=== PATIENT | female | born 1995 | race Two or more races ===

== ENCOUNTER 2021-04-29 13:31 | Emergency (ER) | payer OTHER ==
[~2021-04-29] VITALS: Ht 172.7 cm; Wt 62.4 kg
--- NOTE | 2021-04-29 13:52 | PHYS DOC ---
Past History Past Medical History: No Pertinent History Past Surgical History: No Surgical History Smoking: Non-smoker Alcohol Use: Rarely (Admits rare consumption, glass out wine at dinner yesterday evening) Drug Use: Marijuana (Admits to taking x1 edible yesterday) Adult General HPI HPI Patient is a 26-year-old female presenting for generalized abdominal pain. Onset was this morning without any known inciting event or trauma. Reports she had sex yesterday, reported it was unremarkable and protected, no trauma or any concerns. Reports she woke up this morning with generalized abdominal fullness and slight dysuria without vaginal bleeding or discharge. States she has had generalized cramping and feeling of incomplete bladder emptying all through the morning. Reports her pain started migrating to generalized abdominal area with radiation to right shoulder which concerned her prompting her to come in. She has not taken anything in attempt to alleviate her symptoms. Laying on her side makes better, certain body movements and breathing and makes worse. Last menstrual period was 3 weeks ago and normal in consistency and length. No prior history of intra-abdominal abnormalities, no surgeries or trauma Review of Systems Review of Systems Fourteen body systems of review of systems have been reviewed. See HPI for pertinent positives and negative responses, other bhandari all other systems are negative, non-pertinent or non-contributory Current Medications Current Medications Current Medications Medications (Trade) Dose Ordered Sig/Indira Start Time Stop Time Status Last Admin Dose Admin Fentanyl Citrate (Fentanyl 2ml Vial) 50 mcg 1X ONCE 04/29/21 16:00 04/29/21 16:01 Info (Do NOT chart on this entry -- for MONITORING) 1 each PRN DAILY PRN 04/29/21 14:45 05/01/21 14:44 Iohexol (Omnipaque 300 Mg/ml) 75 ml 1X ONCE 04/29/21 14:30 04/29/21 14:35 DC 04/29/21 14:37 Sodium Chloride 1,000 ml @ 1,000 mls/hr 1X ONCE 04/29/21 14:15 04/29/21 15:14 DC 04/29/21 14:23 Physical Exam Physical Exam Constitutional: Well developed, well nourished, ambulatory from ER waiting room to ER cot but does appear in pain, nontoxic in appearance HENT: Normocephalic, atraumatic, bilateral external ears normal, oropharynx [address], no oral exudates, nose normal. Eyes: PERRLA, EOMI, conjunctiva normal, no discharge. Neck: Normal range of motion, no tenderness, supple, no stridor. Cardiovascular: Heart rate regular, sinus rhythm, no murmurs rubs or gallops Lungs & Thorax: Bilateral breath sounds clear to auscultation Abdomen: Bowel sounds normal, soft, generalized abdominal tenderness more focal to suprapubic region with guarding and rebound present, no masses, no pulsatile masses. Peritoneal signs present Skin: Warm, dry, no erythema, no rash. Back: No tenderness, no CVA tenderness. Extremities: No tenderness, no cyanosis, no clubbing, ROM intact, no edema. Neurologic: Alert and oriented X 3, grossly normal motor & sensory function, no focal deficits noted. Psychologic: Tearful affect, anxious mood Current Patient Data Vital Signs Vital Signs Date Time Temp Pulse Resp B/P (MAP) Pulse Ox O2 Delivery O2 Flow Rate FiO2 04/29/21 13:35 98.2 107 20 104/68 99 Room Air Vital Signs Date Time Temp Pulse Resp B/P (MAP) Pulse Ox O2 Delivery O2 Flow Rate FiO2 04/29/21 15:15 85 20 106/69 (81) 100 Room Air 04/29/21 13:35 98.2 Lab Results Laboratory Tests Test 04/29/21 13:40 04/29/21 13:55 04/29/21 14:15 Urine Collection Type Unknown Urine Color Yellow Urine Clarity Clear Urine pH 6.5 Urine Specific [place] >=1.030 Urine Protein 30 mg/dl Urine Glucose (UA) Neg mg/dL Urine Ketones (Stick) Neg mg/dL Urine Blood Neg Urine Nitrite Neg Urine Bilirubin Neg Urine Urobilinogen Dipstick 0.2 mg/dL Urine Leukocyte Esterase Neg Urine RBC 0 /HPF Urine WBC 1-4 /HPF Urine Squamous Epithelial Cells Mod /LPF Urine Bacteria Mod /HPF Urine Mucus Slight /LPF Bedside Urine HCG, Qualitative hcg negative White Blood Count 12.7 x10^3/uL Red Blood Count 4.20 x10^6/uL Hemoglobin 12.7 g/dL Hematocrit 36.8 % Mean Corpuscular Volume 88 fL Mean Corpuscular Hemoglobin 30 pg Mean Corpuscular Hemoglobin Concent 35 g/dL Red Cell Distribution Width 13.1 % Platelet Count 197 x10^3/uL Neutrophils (%) (Auto) 87 % Lymphocytes (%) (Auto) 8 % Monocytes (%) (Auto) 6 % Eosinophils (%) (Auto) 0 % Basophils (%) (Auto) 0 % Neutrophils # (Auto) 11.0 x10^3uL Lymphocytes # (Auto) 1.0 x10^3/uL Monocytes # (Auto) 0.7 x10^3/uL Eosinophils # (Auto) 0.0 x10^3/uL Basophils # (Auto) 0.0 x10^3/uL Sodium Level 141 mmol/L Potassium Level 4.1 mmol/L Chloride Level 104 mmol/L Carbon Dioxide Level 26 mmol/L Anion Gap 11 Blood Urea Nitrogen 13 mg/dL Creatinine 1.2 mg/dL Estimated GFR (Cockcroft-Gault) 55.2 BUN/Creatinine Ratio 11 Glucose Level 125 mg/dL Calcium Level 8.6 mg/dL Total Bilirubin 1.3 mg/dL Aspartate Amino Transf (AST/SGOT) 16 U/L Alanine Aminotransferase (ALT/SGPT) 16 U/L Alkaline Phosphatase 52 U/L Total Protein 7.1 g/dL Albumin 4.2 g/dL Albumin/Globulin Ratio 1.4 Lipase 63 U/L Current Medications Medications (Trade) Dose Ordered Sig/Indira Route PRN Reason Start Time Stop Time Status Last Admin Dose Admin Sodium Chloride 1,000 ml @ 1,000 mls/hr 1X ONCE IV 04/29/21 14:15 04/29/21 15:14 DC 04/29/21 14:23 Fentanyl Citrate (Fentanyl 2ml Vial) 50 mcg 1X ONCE IVP 04/29/21 14:45 04/29/21 14:46 DC 04/29/21 14:24 Iohexol (Omnipaque 300 Mg/ml) 75 ml 1X ONCE IV 04/29/21 14:30 04/29/21 14:35 DC 04/29/21 14:37 Info (Do NOT chart on this entry -- for MONITORING) 1 each PRN DAILY PRN MC SEE COMMENTS 04/29/21 14:45 05/01/21 14:44 Fentanyl Citrate (Fentanyl 2ml Vial) 50 mcg 1X ONCE IVP 04/29/21 16:00 04/29/21 16:01 EKG EKG [] Radiology/Procedures Radiology/Procedures INDICATION: Reason: GENERALIZED ABDOMINAL PAIN, RADIATION TO RT SHOULDER / Spl. Instructions: / History: . COMPARISON: None. TECHNIQUE: Axial CT images obtained through the abdomen and pelvis with contrast. One or more of the following individualized dose reduction techniques were utilized for this examination: 1. Automated exposure control; 2. Adjustment of the mA and/or kV according to patient size; 3. Use of iterative reconstruction technique. FINDINGS: Abdominal aorta is not aneurysmal. Liver is mildly low density. Nonspecific but can be seen with fatty infiltration. The pancreas enhances. High density fluid seen surrounding the liver and spleen. No hydronephrosis. Urinary bladder is partially distended. Heterogeneity of the uterus. Nonspecific appearance with causes such as fibroid within the differential or edema to the myometrium given the surrounding pelvic process. No dilated loops of bowel to suggest obstruction. Appendix partially seen and not grossly inflamed appearing in visualized portion. There is a large amount of high density fluid seen within the pelvis extending into the abdomen as well. Within the pelvis bilaterally there is heterogenous high density region seen. For example this area measures up to greater than 10 cm within the right adnexa and greater than 8 cm in the left adnexa. Pars defects L5. IMPRESSION: * Large amount of high density fluid is seen within the pelvis but also extending into the abdomen as well including adjacent to the liver and spleen concerning for a large amount of hemoperitoneum. Within the pelvis adjacent to the uterus there is a large heterogenous higher density region within the right greater than left adnexa. Differential considerations would include blood clots within the area as well as contrast from active bleeding with another possible cause including adnexal mass such as ruptured ectopic or a ruptured adnexal lesion with associated large amount of hemorrhage. Report called to the emergency department at 2:57 PM on date of exam. Electronically signed by: Arsenio Mclain MD (04/29/2021 3:02 PM) [id number] Heart Score C/O Chest Pain: No Risk Factors: Risk Factors: DM, Current or recent (<one month) smoker, HTN, HLP, family history of CAD, obesity. Risk Scores: Risk Factors: DM, Current or recent (<one month) smoker, HTN, HLP, family history of CAD, obesity. Course & Med Decision Making Course & Med Decision Making Airway patent, breathing unlabored, IV access and vitals obtained concerning for tachycardia and slight hypotension and a GCS 15 patient HPI nonspecific without any known trauma and an individual who is not with last menstrual period 3 weeks ago. Physical examination and diagnostic work-up concerning for acute abdomen 2/2 hemoperitoneum. Question etiology is ovarian cyst? I contacted surgery and [facility] services at [facility] and discussed need for hospital transfer. Dr. Santillan, excepted need for transfer and advised patient be directed to the OR immediately on arrival I updated patient on proposed plan of care that included hospital transfer, she was amenable. Last PO intake 2100 yesterday. COVID-19 testing deferred to accepting facility 2/2 access to rapid covid test. All questions and concerns addressed prior to transfer via EMS Critical Care Time This patient required critical care. Due to the fact that the patient required a significant amount of one on one physician - patient contact time, ordering and review of studies, arranging urgent treatment with development of a management plan, evaluation of patients response to treatment with frequent reassessments, and discussions with other providers this patient required 35 minutes of critical care time. Critical care time was indicated due to the inherent instability and/or potential for instability in this patient. The critical care time that is allocated to this patient is above and beyond any time spent on any other billable procedures performed on this patient. Dragon Disclaimer Dragon Disclaimer This electronic medical record was generated, in whole or in part, using a voice recognition dictation system. Departure Departure: Impression: Primary Impression: Hemoperitoneum (nontraumatic) Disposition: 02 [facility] TERM [facility] ([facility]) Admitting Physician: Other (DR SANTILLAN) Condition: STABLE Referrals: PCP,NO (PCP) MEE EJREZ DO Apr 29, 2021 13:52
[2021-04-29 14:14] LABS: BACTERIA,URINE MOD /HPF (0-FEW); BILIRUBIN,URINE NEG (NEG); CLARITY,URINE CLEAR; COLOR,URINE YELLOW; GLUCOSE,URINE NEG (NEG); NITRITE,URINE NEG (NEG); RBC,URINE 0 /HPF (0-2); SQUAMOUS EPITHELIAL CELL,UR MOD /LPF; UROBILINOGEN,URINE 0.2 mg/dL (0.2 mg/dL)
[2021-04-29] MEDS ORDERED: IV NORMAL SALINE 1,000ML 1,000 ML IV ONE (14:15)
[2021-04-29] MEDS ORDERED: IOHEXOL 300 MG/ML 75 ML VIAL. IV ONE (14:30)
[2021-04-29 14:33] LABS: BASO % 0 % (0-3); CALCIUM 8.6 mg/dL (8.5-10.1); CREATININE 1.2 mg/dL (0.6-1.0); EOS % 0 % (0-3); GFR 55.2; HEMATOCRIT 36.8 % (36.0-47.0); HEMOGLOBIN 12.7 g/dL (12.0-15.5); LYMPH % 8 % (24-48); MEAN CORPUSCULAR HEMOGLOBIN 30 pg (25-35); MEAN CORPUSCULAR HGB CONC 35 g/dL (31-37); MEAN CORPUSCULAR VOLUME 88 fL (79-100); MONO # 0.7 x10^3/uL (0.0-1.1); MONO % 6 % (0-9); NEUT % 87 % (31-73); PLATELET COUNT 197 x10^3/uL (140-400); POTASSIUM 4.1 mmol/L (3.5-5.1); RED CELL DISTRIBUTION WIDTH 13.1 % (11.5-14.5); WHITE BLOOD COUNT 12.7 x10^3/uL (4.0-11.0)
[2021-04-29 14:39] LABS: ALBUMIN 4.2 g/dL (3.4-5.0); ALBUMIN/GLOBULIN RATIO 1.4 (1.0-1.7); TOTAL BILIRUBIN 1.3 mg/dL (0.2-1.0); TOTAL PROTEIN 7.1 g/dL (6.4-8.2)
[2021-04-29] MEDS ORDERED: CONTRAST GIVEN. MC PRN (14:45)
--- NOTE | 2021-04-29 15:05 | RAD ---
INDICATION: Reason: GENERALIZED ABDOMINAL PAIN, RADIATION TO RT SHOULDER / Spl. Instructions: / Hist ory: . COMPARISON: None. TECHNIQUE: Axial CT images obtained through the abdomen and pelvis with contrast. One or more of the following individualized dose reduction techniques were utilized for this examinat ion: 1. Automated exposure control; 2. Adjustment of the mA and/or kV according to patient size; 3 . Use of iterative reconstruction technique. FINDINGS: Abdominal aorta is not aneurysmal. Liver is mildly low density. Nonspecific but can be seen with fatty infiltration. The pancreas enhances. High density fluid seen surrounding the liver and spleen. No hydronephrosis. Urinary bladder is partially distended. Heterogeneity of the uterus. Nonspecific appearance with causes such as fibroid within the differenti al or edema to the myometrium given the surrounding pelvic process. No dilated loops of bowel to suggest obstruction. Appendix partially seen and not grossly inflamed appearing in visualized portion. There is a large amount of high density fluid seen within the pelvis extending into the abdomen as we ll. Within the pelvis bilaterally there is heterogenous high density region seen. For example this ar ea measures up to greater than 10 cm within the right adnexa and greater than 8 cm in the left adnexa . Pars defects L5. IMPRESSION: * Large amount of high density fluid is seen within the pelvis but also extending into the abdomen a s well including adjacent to the liver and spleen concerning for a large amount of hemoperitoneum. Wi thin the pelvis adjacent to the uterus there is a large heterogenous higher density region within the right greater than left adnexa. Differential considerations would include blood clots within the are a as well as contrast from active bleeding with another possible cause including adnexal mass such as ruptured ectopic or a ruptured adnexal lesion with associated large amount of hemorrhage. Report called to the emergency department at 2:57 PM on date of exam. Electronically signed by: Arsenio Mclain MD (04/29/2021 3:02 PM) [id number]
[2021-04-29 15:42] VITALS: BP 100/65
== END 2021-04-29 16:00 | disposition short-term general hospital (02) ==
LOC: ER 13:31
DX: K66.1 Hemoperitoneum (principal)
CPT/HCPCS: 36415; 74177; 80053; 81001; 81025; 83690; 85025; 87086; 96361; 96374; 96376; 99285; J3010; J7030; Q9967